=== PATIENT | female | born 1990 | race Caucasian/White ===

== ENCOUNTER 2019-12-05 06:41 | Inpatient (IN) ==
[2019-12-05] MEDS ORDERED: CITRIC ACID/SODIUM CITRATE 30 ML UDCUP PO ONE (07:12)
[2019-12-05] MEDS ORDERED: ceFAZolin 3,000 MG in SYRINGE 1 EACH IV ONE (07:12)
[2019-12-05] MEDS ORDERED: FAMOTIDINE 20 MG/2 ML VIAL IV ONE (07:12)
[2019-12-05] MEDS: LACTATED RINGERS 1,000 ML IV SCH ×2 (07:26→16:08)
[2019-12-05 07:44] LABS: Basophils % 0.3 % (0.0-0.8); Eosinophils # 0.1 10*3/uL (0.0-0.87); Eosinophils % 0.9 % (0.00-10.9); Hematocrit 32.6 VOL% (35.7-47.0); Hemoglobin 10.7 GM/DL (12.0-16.0); Immature Granulocytes % 2.2 %; Lymphocytes # 2.1 10*3/uL (1.4-4.0); Lymphocytes % 15.4 % (21.3-54.2); Mean Corpuscular HGB Conc 32.8 GM/DL (32-36); Mean Corpuscular Volume 81.1 FL (87-102); Mean Platelet Volume 10.5 FL (9.6-12.0); Monocytes % 5.7 % (1.7-12.7); Neutrophils % 75.5 % (38.7-73.9); Platelet Count 205 T/CUMM (130-400); Red Blood Count 4.02 MC/CUMM (3.8-5.5); Red Cell Distribution Width 13.3 % (9.3-17.3); White Blood Count 13.8 T/CUMM (4-12)
[2019-12-05] MEDS ORDERED: miSOPROStoL 200 MCG TABLET ONE (08:17)
[2019-12-05] MEDS ORDERED: OXYTOCIN/LR 20 UNIT/1,000 ML BAG IV ONE ×2 (08:17→10:04)
[2019-12-05] MEDS ORDERED: METHYLERGONOVINE 0.2 MG/1 ML AMP ONE (08:18)
[2019-12-05] MEDS ORDERED: MORPHINE 10 MG/10 ML VIAL ONE (08:47)
[2019-12-05] MEDS ORDERED: PHENYLEPHRINE 1 MG/10 ML SYRINGE IV ONE ×2 (08:47→12:29)
[2019-12-05] MEDS ORDERED: ONDANSETRON 4 MG/2 ML VIAL ONE (08:47)
[2019-12-05] MEDS ORDERED: BUPIVACAINE SPINAL 0.75% 2 ML AMP SPINAL ONE (08:47)
[2019-12-05] MEDS ORDERED: ROPIVACAINE 0.5% 30 ML VIAL ONE (08:47)
[2019-12-05] MEDS ORDERED: DEXAMETHASONE 4 MG/1 ML VIAL ONE (08:48)
[2019-12-05] MEDS ORDERED: RHO(D) IMMUNE GLOBULIN 300 MCG SYRINGE IM ONE (10:30)
[2019-12-05] MEDS ORDERED: ceFAZolin 1,000 MG in SYRINGE 1 EACH IV SCH (10:30)
[2019-12-05] MEDS ORDERED: OXYTOCIN 20 UNIT in SODIUM CHLORIDE 0.9% 1,000 ML IV ONE (10:30)
[2019-12-05] MEDS ORDERED: ONDANSETRON 4 MG/2 ML VIAL IV PRN (10:30)
[2019-12-05] MEDS ORDERED: ACETAMINOPHEN 325 MG TABLET PO PRN (10:30)
[2019-12-05] MEDS ORDERED: LACTATED RINGERS 1,000 ML IV SCH (10:30)
[2019-12-05 11:11] LABS: Apearance,Urine CLEAR (Clear); Bilirubin,Urine Negative (Negative); Blood, Urine Negative (Negative); Glucose,Urine (UA) Negative (Negative); Ketones,Urine Negative (Negative); Nitrite,Urine Negative (Negative); Protein,Urine Negative; RBC,Urine <1 /HPF (0-4); Squamous Epithelial Cell,Urine Occasional /HPF (0-10); Urine Color Colorless (Yellow); Urine Specific Gravity 1.009 (1.001-1.035); Urine Urobilinogen < 2.0 EU/DL (0.2-1.0); WBC,Urine <1 /HPF (0-6)
[2019-12-05] MEDS ORDERED: SODIUM CHLORIDE 0.9% 100 ML IV ONE (16:42)
[2019-12-05] MEDS: ACETAMINOPHEN 500 MG TABLET PO SCH ×2 (16:47→22:32)
[2019-12-05] MEDS: ceFAZolin 1,000 MG in SYRINGE 1 EACH IV SCH (16:52)
[2019-12-05 20:18] LABS: Basophils % 0.2 % (0.0-0.8); Hematocrit 32.8 VOL% (35.7-47.0); Hemoglobin 10.4 GM/DL (12.0-16.0); Immature Granulocytes Absolute 0.23 #; Lymphocytes # 1.5 10*3/uL (1.4-4.0); Lymphocytes % 6.7 % (21.3-54.2); Mean Corpuscular HGB Conc 31.7 GM/DL (32-36); Mean Corpuscular Volume 83.7 FL (87-102); Mean Platelet Volume 10.8 FL (9.6-12.0); Monocytes % 3.7 % (1.7-12.7); Neutrophils % 88.4 % (38.7-73.9); Platelet Count 225 T/CUMM (130-400); Red Blood Count 3.92 MC/CUMM (3.8-5.5); Red Cell Distribution Width 13.5 % (9.3-17.3)
[2019-12-05 20:42] LABS: Lymphocytes 9 % (20-55); Segmented Neutrophils 88 % (50-85); Total Cells Counted 100
[2019-12-05 20:43] LABS: Anisocytosis Slight; Burr Cells Slight; Microcytosis Slight
[2019-12-05] MEDS: DOCUSATE SODIUM 100 MG CAPSULE PO SCH (21:48)
[2019-12-05] MEDS ORDERED: diphenhydrAMINE CAP 25 MG CAPSULE PO PRN (22:32)
[2019-12-06] MEDS: ceFAZolin 1,000 MG in SYRINGE 1 EACH IV SCH (01:29)
[2019-12-06] MEDS: ACETAMINOPHEN 500 MG TABLET PO SCH (04:32)
[2019-12-06] MEDS: oxyCODONE/ACETAMINOPHEN 5-325 MG TABLET PO PRN ×5 (04:33→22:10)
[2019-12-06] MEDS: IBUPROFEN 800 MG TABLET PO PRN ×3 (04:33→21:37)
[2019-12-06 05:52] LABS: Basophils # 0.1 10*3/uL (0.0-0.2); Basophils % 0.3 % (0.0-0.8); Eosinophils # 0.1 10*3/uL (0.0-0.87); Eosinophils % 0.4 % (0.00-10.9); Hematocrit 31.4 VOL% (35.7-47.0); Hemoglobin 9.7 GM/DL (12.0-16.0); Immature Granulocytes % 1.8 %; Immature Granulocytes Absolute 0.33 #; Lymphocytes # 3.2 10*3/uL (1.4-4.0); Lymphocytes % 17.9 % (21.3-54.2); Mean Corpuscular HGB Conc 30.9 GM/DL (32-36); Mean Corpuscular Volume 84.9 FL (87-102); Mean Platelet Volume 10.5 FL (9.6-12.0); Monocytes % 5.9 % (1.7-12.7); Neutrophils % 73.7 % (38.7-73.9); Platelet Count 196 T/CUMM (130-400); Red Cell Distribution Width 13.5 % (9.3-17.3)
[2019-12-06] MEDS: DOCUSATE SODIUM 100 MG CAPSULE PO SCH ×3 (09:07→21:28)
[2019-12-06] MEDS: FERROUS SULFATE 325 MG TABLET PO SCH ×3 (09:07→21:28)
[2019-12-06] MEDS: SIMETHICONE CHEW 80 MG TABLET PO PRN ×2 (09:07→19:54)
[2019-12-06] MEDS: MAGNESIUM HYDROXIDE SUSP 30 ML UDCUP PO PRN ×2 (09:07→19:54)
[2019-12-06] MEDS: MULTIVITAMIN (PRENATAL) TABLET PO SCH (09:07)
[2019-12-06] MEDS ORDERED: BISACODYL 10 MG SUPP RECTAL PRN (21:26)
[2019-12-07] MEDS: oxyCODONE/ACETAMINOPHEN 5-325 MG TABLET PO PRN ×3 (06:15→12:07)
[2019-12-07] MEDS: IBUPROFEN 800 MG TABLET PO PRN (06:15)
[2019-12-07 07:22] VITALS: BP 134/77
[2019-12-07] MEDS: MULTIVITAMIN (PRENATAL) TABLET PO SCH (09:17)
[2019-12-07] MEDS: DOCUSATE SODIUM 100 MG CAPSULE PO SCH (09:17)
[2019-12-07] MEDS: FERROUS SULFATE 325 MG TABLET PO SCH (09:18)
[2019-12-07] MEDS ORDERED: DIPH/TET/ACEL PERT BOOSTER VACCINE 0.5 ML VIAL IM ONE (10:58)
== END 2019-12-07 11:40 | disposition home or self-care (01) | DRG 786 ==
LOC: N.LD 06:41 → N.OB 18:05
PROVIDERS: ADMIT Obstetrics & Gynecology; ATTEND Obstetrics & Gynecology
PROC: LDCSECT (ICD-10-PCS; 2019-12-05 09:00)

== ENCOUNTER 2021-12-18 05:31 | Inpatient (IN) ==
[2021-12-18] MEDS ORDERED: TRANEXAMIC ACID 1,000 MG in SODIUM CHLORIDE 0.9% 100 ML IV PRN (06:17)
[2021-12-18] MEDS ORDERED: METHYLERGONOVINE 0.2 MG/1 ML AMP IM PRN (06:17)
[2021-12-18] MEDS ORDERED: OXYTOCIN/LR 20 UNIT/1,000 ML BAG IV ONE ×3 (06:17→09:20)
[2021-12-18] MEDS ORDERED: CITRIC ACID/SODIUM CITRATE 30 ML UDCUP PO ONE (06:17)
[2021-12-18] MEDS ORDERED: FAMOTIDINE 20 MG/2 ML VIAL IV ONE (06:17)
[2021-12-18] MEDS ORDERED: CARBOPROST TROMETHAMINE 250 MCG/ML AMP IM PRN (06:17)
[2021-12-18] MEDS ORDERED: ceFAZolin 3,000 MG in SYRINGE 1 EACH IV ONE (06:17)
[2021-12-18] MEDS ORDERED: miSOPROStoL 200 MCG TABLET RECTAL PRN (06:17)
[2021-12-18] MEDS ORDERED: LABETALOL 20 MG/4 ML SYRINGE IV ONE (06:22)
[2021-12-18] MEDS ORDERED: LACTATED RINGERS 1,000 ML IV SCH ×3 (06:30→18:00)
[2021-12-18 06:44] LABS: Basophils % 0.3 % (0.0-0.8); Eosinophils # 0.1 10*3/uL (0.0-0.87); Eosinophils % 0.6 % (0.00-10.9); Hematocrit 37.6 VOL% (35.7-47.0); Hemoglobin 12.1 GM/DL (12.0-16.0); Immature Granulocytes % 1.6 %; Immature Granulocytes Absolute 0.16 #; Lymphocytes % 20.1 % (21.3-54.2); Mean Corpuscular HGB Conc 32.2 GM/DL (32-36); Mean Corpuscular Volume 85.1 FL (87-102); Monocytes # 0.6 10*3/uL (0.11-0.8); Monocytes % 5.6 % (1.7-12.7); Neutrophils % 71.8 % (38.7-73.9); Platelet Count 137 T/CUMM (130-400); Red Blood Count 4.42 MC/CUMM (3.8-5.5); Red Cell Distribution Width 16.9 % (9.3-17.3); White Blood Count 10.1 T/CUMM (4-12)
[2021-12-18] MEDS ORDERED: BUPIVACAINE SPINAL 0.75% 2 ML AMP SPINAL ONE (06:54)
[2021-12-18] MEDS ORDERED: buprenorphine HCL 0.3 MG/ML VIAL ONE (06:54)
[2021-12-18] MEDS ORDERED: ONDANSETRON 4 MG/2 ML VIAL ONE (06:58)
[2021-12-18 07:02] LABS: Alanine Aminotransferase 18 U/L (13-56); Albumin 2.3 G/DL (3.4-5.0); Alkaline Phosphatase 153 U/L (45-117); Aspartate Amino Transferase 19 U/L (0-37); Bilirubin,Total < 0.39 MG/DL (0.20-1.00); Blood Urea Nitrogen 15 MG/DL (7-18); Carbon Dioxide 22 MMOL/L (21-32); Chloride 109 MMOL/L (98-107); Glucose 85 MG/DL (74-106); Osmolality,Calculated 276.5 MOS/KG (273-304); Potassium 4.4 MMOL/L (3.5-5.1); Sodium 139 MMOL/L (136-145); Total Protein 6.3 G/DL (6.4-8.2)
[2021-12-18] MEDS ORDERED: hydrALAZINE 20 MG/1 ML VIAL IV PRN (07:25)
[2021-12-18] MEDS ORDERED: miSOPROStoL 200 MCG TABLET ONE (07:45)
[2021-12-18] MEDS ORDERED: TRANEXAMIC ACID 1,000 MG/10 ML VIAL ONE (07:45)
[2021-12-18] MEDS ORDERED: SODIUM CHLORIDE 0.9% 0 ML IV ONE (07:45)
[2021-12-18] MEDS ORDERED: CARBOPROST TROMETHAMINE 250 MCG/ML AMP IM ONE (07:46)
[2021-12-18] MEDS ORDERED: METHYLERGONOVINE 0.2 MG/1 ML AMP ONE (07:46)
[2021-12-18] MEDS ORDERED: ePHEDrine 50 MG/ML VIAL ONE (08:00)
[2021-12-18] MEDS ORDERED: PHENYLEPHRINE 1 MG/10 ML SYRINGE IV ONE (08:11)
[2021-12-18] MEDS ORDERED: LACTATED RINGERS 1,000 ML IV ONE (08:11)
[2021-12-18] MEDS ORDERED: ACETAMINOPHEN INJ 1,000 MG/100 ML VIAL IV ONE (08:17)
[2021-12-18 08:26] LABS: Cord Arterial Blood HCO3 21.4 MMOL/L
[2021-12-18 08:30] LABS: Cord Venous Blood HCO3 22.3 MMOL/L; Cord Venous Blood PCO2 47.9 MMHG; Cord Venous Blood PO2 26.8
[2021-12-18 08:43] LABS: Mucus,Urine Occasional /LPF (Occasional); RBC,Urine <1 /HPF (0-4); Squamous Epithelial Cell,Urine Occasional /HPF (0-10)
[2021-12-18 08:48] LABS: Protein,Urine Trace mg/dL (Negative); Urine Appearance Clear (Clear); Urine Color Yellow (Yellow); Urine Specific Gravity 1.025 (1.001-1.035)
[2021-12-18 08:49] LABS: Bilirubin,Urine Negative (Negative); Blood, Urine Negative (Negative); Glucose,Urine (UA) Negative (Negative); Ketones,Urine Negative (Negative); Nitrite,Urine Negative (Negative); Urine Urobilinogen 0.2 eU/dL (<2.0)
[2021-12-18] MEDS ORDERED: RHO(D) IMMUNE GLOBULIN 300 MCG SYRINGE IM ONE (09:20)
[2021-12-18] MEDS ORDERED: ONDANSETRON 4 MG/2 ML VIAL IV PRN (09:20)
[2021-12-18] MEDS ORDERED: ACETAMINOPHEN 325 MG TABLET PO PRN (09:20)
[2021-12-18] MEDS ORDERED: diphenhydrAMINE CAP 25 MG CAPSULE PO PRN (10:08)
[2021-12-18] MEDS ORDERED: diphenhydrAMINE 50 MG/1 ML VIAL ONE (10:35)
[2021-12-18] MEDS ORDERED: diphenhydrAMINE 50 MG/1 ML VIAL IV SCH ×2 (10:36→12:00)
[2021-12-18] MEDS: LABETALOL 200 MG TABLET PO SCH ×2 (15:25)
[2021-12-18] MEDS: KETOROLAC 30 MG/1 ML VIAL IV SCH ×2 (15:27→21:00)
[2021-12-18] MEDS: ACETAMINOPHEN 500 MG TABLET PO SCH ×2 (15:28→21:28)
[2021-12-18] MEDS: ceFAZolin 2,000 MG/50 ML DUPLEX IV SCH ×2 (15:28→22:40)
[2021-12-18 16:18] LABS: Basophils % 0.2 % (0.0-0.8); Eosinophils % 0.3 % (0.00-10.9); Hematocrit 34.1 VOL% (35.7-47.0); Hemoglobin 10.9 GM/DL (12.0-16.0); Immature Granulocytes % 0.9 %; Immature Granulocytes Absolute 0.12 #; Lymphocytes # 1.9 10*3/uL (1.4-4.0); Mean Corpuscular Volume 85.7 FL (87-102); Mean Platelet Volume 12.5 FL (9.6-12.0); Monocytes # 0.7 10*3/uL (0.11-0.8); Monocytes % 5.4 % (1.7-12.7); Neutrophils % 78.2 % (38.7-73.9); Platelet Count 124 T/CUMM (130-400); Red Blood Count 3.98 MC/CUMM (3.8-5.5); White Blood Count 12.6 T/CUMM (4-12)
[2021-12-18] MEDS: DOCUSATE SODIUM 100 MG CAPSULE PO SCH ×2 (19:49→21:28)
[2021-12-18] MEDS: oxyCODONE/ACETAMINOPHEN 5-325 MG TABLET PO PRN (21:08)
[2021-12-19] MEDS: LABETALOL 200 MG TABLET PO SCH ×4 (00:16→20:57)
[2021-12-19] MEDS: oxyCODONE/ACETAMINOPHEN 5-325 MG TABLET PO PRN ×5 (01:17→23:40)
[2021-12-19] MEDS: ACETAMINOPHEN 500 MG TABLET PO SCH (02:58)
[2021-12-19] MEDS: KETOROLAC 30 MG/1 ML VIAL IV SCH (02:58)
[2021-12-19 05:32] LABS: Basophils % 0.3 % (0.0-0.8); Eosinophils # 0.1 10*3/uL (0.0-0.87); Eosinophils % 0.8 % (0.00-10.9); Hematocrit 31.6 VOL% (35.7-47.0); Hemoglobin 10.1 GM/DL (12.0-16.0); Immature Granulocytes % 1.3 %; Immature Granulocytes Absolute 0.16 #; Lymphocytes # 1.9 10*3/uL (1.4-4.0); Lymphocytes % 16.2 % (21.3-54.2); Mean Corpuscular Volume 87.1 FL (87-102); Mean Platelet Volume 12.5 FL (9.6-12.0); Monocytes # 0.7 10*3/uL (0.11-0.8); Neutrophils % 75.4 % (38.7-73.9); Platelet Count 119 T/CUMM (130-400); Red Blood Count 3.63 MC/CUMM (3.8-5.5); Red Cell Distribution Width 17.4 % (9.3-17.3); White Blood Count 11.9 T/CUMM (4-12)
[2021-12-19] MEDS: MAGNESIUM HYDROXIDE SUSP 30 ML UDCUP PO PRN ×2 (08:34→19:37)
[2021-12-19] MEDS: DOCUSATE SODIUM 100 MG CAPSULE PO SCH ×2 (08:35→19:37)
[2021-12-19] MEDS: MULTIVITAMIN (PRENATAL) TABLET PO SCH (08:35)
[2021-12-19] MEDS: IBUPROFEN 800 MG TABLET PO PRN ×3 (08:41→20:57)
[2021-12-19] MEDS: SIMETHICONE CHEW 80 MG TABLET PO PRN (19:37)
[2021-12-19] MEDS ORDERED: MAGNESIUM CITRATE 300 ML BOTTLE PO ONE (22:30)
[2021-12-20] MEDS: IBUPROFEN 800 MG TABLET PO PRN ×2 (04:17→11:06)
[2021-12-20] MEDS: oxyCODONE/ACETAMINOPHEN 5-325 MG TABLET PO PRN ×3 (04:18→11:41)
[2021-12-20] MEDS: SIMETHICONE CHEW 80 MG TABLET PO PRN (04:20)
[2021-12-20] MEDS: DOCUSATE SODIUM 100 MG CAPSULE PO SCH ×2 (05:41→09:25)
[2021-12-20] MEDS: MULTIVITAMIN (PRENATAL) TABLET PO SCH (09:25)
[2021-12-20 09:52] VITALS: BP 135/63
[2021-12-20] MEDS: LABETALOL 200 MG TABLET PO SCH (11:26)
[2021-12-20] MEDS ORDERED: oxyCODONE/ACETAMINOPHEN 5-325 MG TABLET PO PRN (11:43)
== END 2021-12-20 14:30 | disposition home or self-care (01) | DRG 785 ==
LOC: N.LD 05:31 → N.OB 11:58
PROVIDERS: ADMIT Obstetrics & Gynecology; ATTEND Obstetrics & Gynecology
PROC: LDCSECT (ICD-10-PCS; 2021-12-18 07:30)